=== PATIENT | female | born 1970 | race Caucasian/White ===

== ENCOUNTER 2018-01-11 07:30 | Day surgery (SDC) | payer BC ==
[~2018-01-11 07:30] MED LIST: Dextrose 5%-0.45% NaCl 1,000 ML IV SCH; Midazolam 1 MG/ML 2 ML SDV ONE; Sodium Chloride 0.9% 10 ML Syringe FLUSH PRN; fentaNYL 100 MCG/2 ML SDV ONE
[2018-01-11] MEDS ORDERED: fentaNYL 100 MCG/2 ML SDV IV ONE ×3 (07:31→08:02)
[2018-01-11] MEDS ORDERED: Midazolam 1 MG/ML 2 ML SDV IV ONE ×3 (07:31→08:03)
--- NOTE | 2018-01-11 14:51 | OR ---
DATE: 01/11/2018 PROCEDURE: Esophagogastroduodenoscopy and multiple pinch biopsies. INSTRUMENT USED: GIF-Q180 Olympus video panendoscope. PREMEDICATIONS: No oral topical anesthesia used. Fentanyl 100 mcg intravenous, Versed 2 mg intravenous, and nasal O2 cannula. The procedure was done under pulse oximetry, BP recording, and cardiac monitoring. INDICATION: The patient with status post gastric bypass surgery with episodes of vomiting and unexplained iron-deficiency anemia. Esophagogastroduodenoscopy is performed for detection of any active erosive lesions, malignancy also under consideration, H. pylori status to be determined, small bowel biopsies to be obtained for celiac disease, endoscopic hemostasis therapy if needed. The scope was passed with ease. Adequate visualization of the esophagus was made from [id number] areas. No upper esophageal lesions identified. No distal esophageal stricture. No uphill or downhill esophageal varices. No Elina-Olsen tear. No evidence of erosive esophagitis by Fergus criteria. No esophageal polyp or tumor mass identified. Z-line was seen at around 39 cm distal to the oral verge, configuration consistent with grade 1 by Zapp classification. No proximal gastric varices noted. Gastric fundus examination by retroflexion showed no polypoid lesions. No gastric ulcer, malignant mass, or vascular ectasia identified. Multiple pinch biopsies were obtained from the small gastric stump and sent for PyloriTek test for H. pylori and histopathology. Visualized loops of the small bowel were unremarkable. Multiple pinch biopsies, 4 in number were taken from different areas of the duodenum and sent for any histopathologic evidence of celiac disease. No bleeding was noted from any of the visualized areas at the completion of examination. Photographs were taken of the surgical site, gastric fundus, and distal esophagus. IMPRESSION: Status post gastric bypass surgery. The patient tolerated the procedure well. [facility] /[id number]
--- NOTE | 2018-01-11 15:03 | LETTER ---
01/11/2018 Nasrin Martinez, TINO [facility] [address] [place] [id number] Dear Ms. Schofieldroland: RE: Rose Gilbert : 1970 Ms. Rose Gilbert had esophagogastroduodenoscopy done this morning and she tolerated the procedure well. I here with send copy of the endoscopy note and photographs for your review. Thank you. Sincerely, [facility] /[id number]
== END 2018-01-11 10:18 | disposition home or self-care (01) ==
LOC: DL.ENDO 07:30
PROVIDERS: ATTEND Internal Medicine Gastroenterology
DX: R11.10 Vomiting, unspecified (principal); D50.9 Iron deficiency anemia, unspecified; Z98.84 Bariatric surgery status; E73.9 Lactose intolerance, unspecified; Z88.5 Allergy status to narcotic agent; Z88.6 Allergy status to analgesic agent
CPT/HCPCS: 43239; 87077; J2250; J3010; J7042